=== PATIENT | male | born 1995 | race Caucasian/White ===

== ENCOUNTER 2023-02-16 20:36 | Emergency (ER) | payer OTHER ==
[2023-02-16] MEDS ORDERED: MORPHINE 2 MG/ML CARPUJECT IVP STA (20:59)
[2023-02-16 21:00] LABS: BASOPHILS # (AUTO) 0.1 10^3/uL (0.0-0.1); BASOPHILS % (AUTO) 0.8 %; EOSINOPHILS # (AUTO) 0.1 10^3/uL (0.0-0.7); EOSINOPHILS % (AUTO) 1.1 %; HGB - HEMOGLOBIN 15.8 g/dL (14.0-18.0); LYMPHOCYTES # (AUTO) 2.1 10^3/uL (1.5-3.5); LYMPHOCYTES % (AUTO) 24.3 %; MEAN CORPUSCULAR HEMOGLOBIN 29.4 pg (27.0-31.0); MEAN CORPUSCULAR HGB CONC 32.9 g/dL (32.0-36.0); MEAN CORPUSCULAR VOLUME 89.4 fL (80.0-94.0); MONOCYTES # (AUTO) 0.6 10^3/uL (0.0-1.0); MONOCYTES % (AUTO) 7.5 %; NEUTROPHILS # (AUTO) 5.6 10^3/uL (1.5-6.6); NEUTROPHILS % (AUTO) 65.9 %; PLT - PLATELET COUNT 262 10^3/uL (130-450); RED BLOOD COUNT 5.37 10^6/uL (4.70-6.10); WHITE BLOOD COUNT 8.5 x10^3/uL (4.8-10.8)
[2023-02-16] MEDS ORDERED: iohexoL-300 100 ML VIAL ONE (21:16)
[2023-02-16 21:19] LABS: ALBUMIN 4.7 g/dL (3.2-5.5); ALBUMIN/GLOBULIN RATIO 1.7 (1.0-2.2); BILIRUBIN,TOTAL 1.2 mg/dL (0.2-1.0); CALCIUM 9.5 mg/dL (8.5-10.3); CREATININE 0.8 mg/dL (0.6-1.3); POTASSIUM 3.9 mmol/L (3.5-4.5); TOTAL PROTEIN 7.5 g/dL (6.4-8.9)
--- NOTE | 2023-02-16 21:23 | ED Physician Documentation ---
PD HPI ABD PAIN - Stated complaint Stated Complaint: ABD PX - Chief complaint Chief Complaint: Abd Pain - History obtained from History obtained from: Patient - History of Present Illness Timing - onset: Today Timing - duration: Days (1) Timing - details: Gradual onset Associated symptoms: Constipation, Hematochezia. No: Fever, Vomiting, Hematemesis, Diarrhea, Melena, Dysuria, Hematuria - Additional information Additional information: Patient is a 27-year-old male who presents to the emergency department abdominal pain today. He states that he has a history of likely celiac disease. He has not been formally tested for this. He has been tested for ulcerative colitis and Crohn's disease. He states these are negative. He states he has had normal endoscopies and colonoscopies. There is a history of IBS and Crohn's disease in his family. He states that he does not believe he ate any gluten today. He states he did have a hard bowel movement and there was some bright red blood in the stool. He states that the pain has now spread from the left lower quadrant all across his abdomen. He states 9 out of 10 pain prior to arrival, currently 6 out of 10. Does not take any medications at home. Worse with movement and palpation. No vomiting. No fevers. No urinary symptoms. Review of Systems Constitutional: denies: Fever, Chills GI: denies: Vomiting, Diarrhea Skin: denies: Rash Musculoskeletal: denies: Neck pain, Back pain Neurologic: denies: Headache PD PAST MEDICAL HISTORY - Past Medical History Past Medical History: Yes Cardiovascular: None Respiratory: None Neuro: None GI: Other : None HEENT: None Psych: None Musculoskeletal: None Derm: None - Past Surgical History Past Surgical History: Yes General: Colonoscopy - Present Medications Home Medications: Ambulatory Orders Medication Instructions Recorded Confirmed No Known Home Medications 02/16/23 02/16/23 - Allergies Allergies/Adverse Reactions: Allergies Allergy/AdvReac Type Severity Reaction Status Date / Time No Known Drug Allergies Allergy Verified 02/16/23 20:47 - Social History Does the pt smoke?: No Smoking Status: Never smoker PD ED PE NORMAL - Vitals Vital signs reviewed: Yes - General General: Alert and oriented X 3, No acute distress - HEENT HEENT: Moist mucous membranes - Neck Neck: Supple, no meningeal sign - Cardiac Cardiac: RRR, Strong equal pulses - Respiratory Respiratory: No respiratory distress, Clear bilaterally - Abdomen Abdomen: Other - Back Back: No CVA TTP, No spinal TTP - Derm Derm: Warm and dry - Extremities Extremities: No edema - Neuro Neuro: Alert and oriented X 3 Results - Vitals Vitals: Vital Signs - 24 hr 02/16/23 20:45 Temperature 36.7 C Heart Rate 100 Respiratory 18 Rate Blood Pressure 127/74 O2 Saturation 100 Oxygen O2 Source Room air - Labs Labs: Laboratory Tests 02/16/23 02/16/23 20:56 20:56 WBC 8.5 RBC 5.37 Hgb 15.8 Hct 48.0 MCV 89.4 MCH 29.4 MCHC 32.9 RDW 12.0 Plt Count 262 MPV 10.0 Neut # (Auto) 5.6 Lymph # (Auto) 2.1 Gaines # (Auto) 0.6 Eos # (Auto) 0.1 Baso # (Auto) 0.1 Absolute Nucleated RBC 0.00 Nucleated RBC % 0.0 Sodium 139 Potassium 3.9 Chloride 106 Carbon Dioxide 27 Anion Gap 6.0 BUN 7 Creatinine 0.8 Estimated GFR (MDRD) 118 Glucose 90 Calcium 9.5 Total Bilirubin 1.2 H AST 19 ALT 33 Alkaline Phosphatase 63 Total Protein 7.5 Albumin 4.7 Globulin 2.8 Albumin/Globulin Ratio 1.7 Lipase 30 PD Medical Decision Making - ED course Complexity details: reviewed results, re-evaluated patient, considered differential, d/w patient ED course: No significant lab abnormalities. Patient will be signed out to Dr. Salgado for follow-up on CT scan. If his pain is well controlled and see CT scan does not show any acute abnormalities, likely can be discharged home. Patient is well- appearing, nontoxic. Afebrile. This document was made in part using voice recognition software. While efforts are made to proofread this document, sound alike and grammatical errors may occur. Departure - Departure Clinical Impression: Abdominal pain Qualifiers: Abdominal location: unspecified location Qualified Code(s): R10.9 - Unspecified abdominal pain Condition: Stable Forms: PCP List
--- NOTE | 2023-02-16 23:31 | CT Report ---
PROCEDURE: ABDOMEN/PELVIS W INDICATIONS: diffuse abd pain, rectal bleeding CONTRAST: 100mL Omni 300 TECHNIQUE: After the administration of intravenous contrast, 5 mm thick sections acquired from the diaphragms to the symphysis. 5 mm thick coronal and sagittal reformats were acquired. For radiation dose reducti on, the following was used: automated exposure control, adjustment of mA and/or kV according to sanjuana ent size. COMPARISON: None. FINDINGS: Image quality: Excellent. Lung bases: Unremarkable. Heart: Heart is normal in size. ABDOMEN: Liver:There is a hypervascular confluence of portal and hepatic venous branches peripherally in segm ent 7 of the right hepatic lobe suggestive of a portal-hepatic venous fistula. There is hypoattenuati on of the liver compatible with fatty infiltration. Gallbladder: Within normal limits without calcified gallstones. Biliary ducts: No biliary ductal dilatation. Pancreas: Unremarkable. Spleen: Normal in size. Adrenal Glands: No adrenal nodules. Kidneys and Ureters: No hydronephrosis. Stomach and Bowel: Stomach, small bowel loops, and colon are normal in caliber and wall thickness. T he appendix is normal. Peritoneum: No abnormal intraperitoneal fluid. No free air. Ventral Wall: No hernia. Abdominal Nodes: No retroperitoneal or mesenteric adenopathy by size criteria. Vessels: Aorta and inferior vena cava are normal in size. PELVIS: Pelvic Organs: Unremarkable. Bladder: Unremarkable. Pelvic Nodes: No enlarged lymph nodes. Miscellaneous: No inguinal hernias. Bones: Visualized osseous structures demonstrate no suspicious lesions. IMPRESSION: 1. No definite acute intra-abdominal abnormality. 2. No discrete bowel mass identified. 3. 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 Reviewed by: Cheko Rivera MD on 02/16/2023 11:30 PM PDT Approved by: Cheko Rivera MD on 02/16/2023 11:30 PM PDT Station ID: [id number]
[2023-02-16 23:51] VITALS: BP 121/82; O2SAT 97
[2023-02-17] MEDS ORDERED: iohexoL-300 100 ML VIAL IVP ONE (03:48)
== END 2023-02-16 23:48 | disposition home or self-care (01) ==
LOC: ED 20:36
DX: R10.9 Unspecified abdominal pain (principal)
CPT/HCPCS: 36415; 74177; 80053; 83690; 85025; 96374; 99283; 99284; Q9967